=== PATIENT | male | born 1965 | race Caucasian/White ===

== ENCOUNTER 2016-05-30 00:59 | Inpatient (IN) | payer OTHER ==
[~2016-05-30] VITALS: Ht 177.8 cm; Wt 168.0 kg
[~2016-05-30 00:59] MED LIST: ACET-2247 PO; ASPI-1093 PO; AUD NEB; BISA10S PR; FOLI1 PO; HEPA500017 SQ; IPRNEB IH; METO-323 PO; MOM30 PO; NTP TD; OMEP20 PO; PERCT PO; ZOLP5 PO
[2016-05-30] MEDS ORDERED: GABA-529 PO (01:09)
[2016-05-30 02:04] LABS: EOSINOPHILS % (AUTO) 3.7 % (1.0-6.0); HEMATOCRIT 36.9 % (41-53); HEMOGLOBIN 11.9 g/dL (13.5-17.5); LYMPHOCYTES # (AUTO) 1.7 K/uL (1.0-4.8); LYMPHOCYTES % (AUTO) 13.4 % (22.0-44.0); MEAN CORPUSCULAR HEMOGLOBIN 35.5 pg (26.0-34.0); MEAN CORPUSCULAR HGB CONC 32.2 G/dL (31.0-37.0); MEAN CORPUSCULAR VOLUME 110 fL (80-100); MONOCYTES # (AUTO) 0.7 K/uL (0.1-1.0); MONOCYTES % (AUTO) 5.6 % (2.0-9.0); NEUTROPHILS # (AUTO) 9.8 K/uL (1.8-7.7); NEUTROPHILS % (AUTO) 77.3 % (40.0-70.0); PLATELET COUNT (AUTO) 273 K/uL (150-450); RED BLOOD CELL COUNT(AUTO) 3.35 MIL/uL (4.50-5.90); WHITE BLOOD COUNT (AUTO) 12.7 K/uL (4.5-11.0)
[2016-05-30 02:13] LABS: PROTHROMBIN TIME 10.3 SEC (9.4-11.6)
[2016-05-30 02:14] LABS: ANION GAP 8 mmol/L (8-16); CALCIUM, TOTAL 8.9 mg/dL (8.8-10.5); CARBON DIOXIDE 32 mmol/L (22-29); CHLORIDE 101 mmol/L (98-107); CREATININE 0.91 mg/dL (0.60-1.30); GLOMERULAR FILTR. RATE CALC > 60 mL/min (>60); POTASSIUM 3.3 mmol/L (3.5-5.1); SODIUM SERUM 141 mmol/L (136-145); UREA NITROGEN, BLOOD 7 mg/dL (7-18)
[2016-05-30 02:20] LABS: ALANINE AMINOTRANSFERASE 30 U/L (12-78); ASPARTATE AMINOTRANSFERASE 39 U/L (15-37); BILIRUBIN,TOTAL 0.4 mg/dL (0.1-1.0); CREATINE KINASE, TOTAL 53 U/L (39-308); TOTAL PROTEIN, SERUM 7.1 g/dL (6.4-8.2)
[2016-05-30 02:28] LABS: RBC MORPHOLOGY COMMENT ABNORMAL RBC MORPH
[2016-05-30 02:30] LABS: B-TYPE NATRIURETIC PEPTIDE 123 pg/mL (0-100)
[2016-05-30 03:29] LABS: APPEARANCE,URINE CLEAR (CLEAR); GLUCOSE, URINE (UA) NEGATIVE (NEGATIVE); KETONES,URINE NEGATIVE (NEGATIVE); LEUKOCYTE ESTERASE ,URINE NEGATIVE (NEGATIVE); OCCULT BLOOD,URINE NEGATIVE (NEGATIVE); PROTEIN,URINE SEE CONFIRM (NEGATIVE)
[2016-05-30] MEDS ORDERED: IPRATROPIUM BROMIDE 0.5 MG/2.5 ML NEB SOLUTION NEB ONE (03:30)
[2016-05-30] MEDS ORDERED: ALBUTEROL SULFATE 5 MG/ML 20 ML NEB SOLN [BULK] NEB ONE (03:30)
[2016-05-30] MEDS ORDERED: 0.9% SODIUM CHLORIDE 5 ML NEB SOLUTION NEB ONE (03:31)
[2016-05-30 03:56] LABS: ADD UA MICROSCOPIC YES; SULFOSALICYLIC ACID,URINE 1+ (Negative)
[2016-05-30 03:57] LABS: RBC,URINE 0-2 /HPF (0-2); SQUAMOUS EPITHELIAL CELL,UR Rare /LPF (None Seen)
[2016-05-30] MEDS ORDERED: ACETAMINOPHEN 325 MG TABLET PO PRN (04:30)
[2016-05-30] MEDS ORDERED: MAGNESIUM HYDROXIDE SUSPENSION 30 ML UDCUP PO PRN (04:30)
[2016-05-30] MEDS ORDERED: ONDANSETRON HCL 4 MG/2 ML VIAL IVP PRN (04:30)
[2016-05-30] MEDS ORDERED: MethylPREDNISolone SOD SUCC 125 MG/2 ML VIAL IVP ONE (04:30)
[2016-05-30] MEDS ORDERED: BISACODYL 10 MG RECTAL RECTAL SUPPOSITORY PR PRN (04:30)
[2016-05-30] MEDS ORDERED: ALBUTEROL SULFATE 2.5 MG/0.5 ML NEB SOLUTION NEB PRN (04:30)
[2016-05-30] MEDS: OxyCODONE HCL/ACETAMINOPHEN 5-325 MG TABLET PO PRN ×4 (05:07→20:28)
[2016-05-30 05:54] VITALS: BP 108/57
[2016-05-30] MEDS ORDERED: PNEUMOCOCCAL VACCINE POLYVALENT 0.5 ML VIAL [PPSV23] IM ONE (07:00)
[2016-05-30 07:35] VITALS: BP 113/56
[2016-05-30] MEDS: ALBUTEROL SULFATE 2.5 MG/0.5 ML NEB SOLUTION NEB SCH ×3 (08:23→20:44)
[2016-05-30] MEDS: IPRATROPIUM BROMIDE 0.5 MG/2.5 ML NEB SOLUTION NEB SCH ×3 (08:23→20:44)
[2016-05-30 09:56] LABS: GLUCOSE COMMENT 1 Received Meds; GLUCOSE,POINT OF CARE 155 MG/DL (70-110)
[2016-05-30] MEDS: FOLIC ACID 1 MG TABLET PO SCH ×2 (10:03→20:25)
[2016-05-30] MEDS: ASPIRIN 81 MG EC TABLET PO SCH (10:03)
[2016-05-30] MEDS: GABAPENTIN 100 MG CAPSULE PO SCH ×2 (10:03→20:26)
[2016-05-30] MEDS: PANTOPRAZOLE SODIUM 40 MG DR TABLET PO SCH (10:03)
[2016-05-30] MEDS: HEPARIN SODIUM,PORCINE 5,000 UNITS/ML VIAL SQ SCH ×3 (10:03→23:49)
[2016-05-30 10:38] VITALS: BP 110/57
[2016-05-30] MEDS: MethylPREDNISolone SOD SUCC 125 MG/2 ML VIAL IVP SCH ×3 (12:49→23:49)
[2016-05-30 15:25] VITALS: BP 122/61
[2016-05-30] MEDS ORDERED: POTASSIUM CHLORIDE 20 MEQ ER TABLET PO PRN (15:30)
[2016-05-30 15:40] LABS: ABG A-A DIFF O2 140.4 mmHg (10-20.0); ABG BASE EXCESS 5.2 mmol/L (-2.0-3.0); ABG HCO3 28.3 mmol/L (22.0-26.0); ABG OXYHEMOGLOBIN 88.5 % (94.0-100.0); ABG PCO2 47 mmHg (35-45); ABG PH 7.419 (7.35-7.450); ALLEN TEST, BLOOD GAS Positive; TEMPERATURE, FAHRENHEIT, BG 98.5 FAHREN (96.0-98.6)
[2016-05-30 20:25] VITALS: BP 127/64
[2016-05-30] MEDS: METOPROLOL SUCCINATE 25 MG ER TABLET PO SCH (20:26)
[2016-05-30] MEDS: ZOLPIDEM TARTRATE 10 MG TABLET PO PRN (21:56)
[2016-05-31 00:18] VITALS: BP 128/74
[2016-05-31] MEDS: ALBUTEROL SULFATE 2.5 MG/0.5 ML NEB SOLUTION NEB SCH ×4 (02:00→20:00)
[2016-05-31] MEDS: IPRATROPIUM BROMIDE 0.5 MG/2.5 ML NEB SOLUTION NEB SCH ×4 (02:00→20:00)
[2016-05-31] MEDS: OxyCODONE HCL/ACETAMINOPHEN 5-325 MG TABLET PO PRN ×4 (02:18→20:05)
[2016-05-31 04:59] VITALS: BP 114/51
[2016-05-31] MEDS: MethylPREDNISolone SOD SUCC 125 MG/2 ML VIAL IVP SCH ×4 (05:54→23:45)
[2016-05-31 06:49] LABS: EOSINOPHILS % (AUTO) 0.03 % (1.0-6.0); HEMOGLOBIN 11.7 g/dL (13.5-17.5); LYMPHOCYTES # (AUTO) 1.1 K/uL (1.0-4.8); LYMPHOCYTES % (AUTO) 6.8 % (22.0-44.0); MEAN CORPUSCULAR HEMOGLOBIN 35.8 pg (26.0-34.0); MEAN CORPUSCULAR HGB CONC 32.5 G/dL (31.0-37.0); MEAN CORPUSCULAR VOLUME 110 fL (80-100); MONOCYTES # (AUTO) 0.4 K/uL (0.1-1.0); MONOCYTES % (AUTO) 2.2 % (2.0-9.0); NEUTROPHILS # (AUTO) 14.5 K/uL (1.8-7.7); PLATELET COUNT (AUTO) 249 K/uL (150-450); RED BLOOD CELL COUNT(AUTO) 3.27 MIL/uL (4.50-5.90); RED CELL DISTRIBUTION WIDTH 22.7 % (11.5-14.5)
[2016-05-31 06:53] LABS: NEUTROPHILS % (AUTO) 90.9 % (40.0-70.0)
[2016-05-31 06:55] LABS: ANION GAP 7 mmol/L (8-16); CARBON DIOXIDE 31 mmol/L (22-29); CHLORIDE 99 mmol/L (98-107); CREATININE 0.73 mg/dL (0.60-1.30); GLOMERULAR FILTR. RATE CALC > 60 mL/min (>60); POTASSIUM 4.3 mmol/L (3.5-5.1); SODIUM SERUM 137 mmol/L (136-145); UREA NITROGEN, BLOOD 14 mg/dL (7-18)
[2016-05-31 07:31] VITALS: BP 112/66
[2016-05-31] MEDS: PANTOPRAZOLE SODIUM 40 MG DR TABLET PO SCH (07:47)
[2016-05-31] MEDS: GABAPENTIN 100 MG CAPSULE PO SCH ×2 (07:47→20:05)
[2016-05-31] MEDS: FOLIC ACID 1 MG TABLET PO SCH ×2 (07:47→20:05)
[2016-05-31] MEDS: ASPIRIN 81 MG EC TABLET PO SCH (07:47)
[2016-05-31] MEDS: HEPARIN SODIUM,PORCINE 5,000 UNITS/ML VIAL SQ SCH ×3 (09:03→23:45)
[2016-05-31 09:50] LABS: RBC MORPHOLOGY COMMENT ABNORMAL RBC MORPH
[2016-05-31 11:33] VITALS: BP 135/103
[2016-05-31 14:47] VITALS: BP 126/60
[2016-05-31 19:28] VITALS: BP 142/69
[2016-05-31] MEDS: METOPROLOL SUCCINATE 25 MG ER TABLET PO SCH (20:05)
[2016-05-31] MEDS ORDERED: 0.9% SODIUM CHLORIDE 10 ML SYRINGE IVP PRN (22:00)
[2016-05-31] MEDS: ZOLPIDEM TARTRATE 10 MG TABLET PO PRN (23:45)
[2016-06-01 00:07] VITALS: BP 132/68
[2016-06-01] MEDS: ALBUTEROL SULFATE 2.5 MG/0.5 ML NEB SOLUTION NEB SCH ×4 (02:08→19:50)
[2016-06-01] MEDS: IPRATROPIUM BROMIDE 0.5 MG/2.5 ML NEB SOLUTION NEB SCH ×4 (02:08→19:51)
[2016-06-01 03:09] VITALS: BP 146/83
[2016-06-01] MEDS: OxyCODONE HCL/ACETAMINOPHEN 5-325 MG TABLET PO PRN ×4 (04:05→20:48)
[2016-06-01] MEDS: MethylPREDNISolone SOD SUCC 125 MG/2 ML VIAL IVP SCH ×4 (05:31→22:54)
[2016-06-01 06:23] LABS: EOSINOPHILS % (AUTO) 0 % (1.0-6.0); HEMATOCRIT 36.2 % (41-53); HEMOGLOBIN 11.6 g/dL (13.5-17.5); LYMPHOCYTES % (AUTO) 5.8 % (22.0-44.0); MEAN CORPUSCULAR HEMOGLOBIN 35.2 pg (26.0-34.0); MEAN CORPUSCULAR VOLUME 110 fL (80-100); MONOCYTES # (AUTO) 0.7 K/uL (0.1-1.0); MONOCYTES % (AUTO) 3.9 % (2.0-9.0); NEUTROPHILS # (AUTO) 15.9 K/uL (1.8-7.7); PLATELET COUNT (AUTO) 250 K/uL (150-450); RED BLOOD CELL COUNT(AUTO) 3.29 MIL/uL (4.50-5.90); RED CELL DISTRIBUTION WIDTH 22.5 % (11.5-14.5); WHITE BLOOD COUNT (AUTO) 17.6 K/uL (4.5-11.0)
[2016-06-01 07:09] LABS: ANION GAP 12 mmol/L (8-16); CALCIUM, TOTAL 9.3 mg/dL (8.8-10.5); CARBON DIOXIDE 28 mmol/L (22-29); CHLORIDE 97 mmol/L (98-107); CREATININE 0.82 mg/dL (0.60-1.30); GLOMERULAR FILTR. RATE CALC > 60 mL/min (>60); POTASSIUM 3.9 mmol/L (3.5-5.1); SODIUM SERUM 137 mmol/L (136-145); UREA NITROGEN, BLOOD 21 mg/dL (7-18)
[2016-06-01 07:11] LABS: NEUTROPHILS % (AUTO) 90.3 % (40.0-70.0)
[2016-06-01 08:04] LABS: RBC MORPHOLOGY COMMENT ABNORMAL RBC MORPH
[2016-06-01 08:14] VITALS: BP 133/82
[2016-06-01] MEDS: FOLIC ACID 1 MG TABLET PO SCH ×2 (08:17→20:48)
[2016-06-01] MEDS: PANTOPRAZOLE SODIUM 40 MG DR TABLET PO SCH (08:17)
[2016-06-01] MEDS: GABAPENTIN 100 MG CAPSULE PO SCH ×2 (08:17→20:48)
[2016-06-01] MEDS: ASPIRIN 81 MG EC TABLET PO SCH (08:18)
[2016-06-01] MEDS: HEPARIN SODIUM,PORCINE 5,000 UNITS/ML VIAL SQ SCH ×3 (08:18→22:54)
[2016-06-01 11:17] VITALS: BP 147/85
[2016-06-01 15:48] VITALS: BP 141/78
[2016-06-01 19:35] VITALS: BP 149/76
[2016-06-01] MEDS: OXYGEN THERAPY IH SCH (19:51)
[2016-06-01] MEDS: METOPROLOL SUCCINATE 25 MG ER TABLET PO SCH (22:03)
[2016-06-01] MEDS: ZOLPIDEM TARTRATE 10 MG TABLET PO PRN (22:55)
[2016-06-02 00:05] VITALS: BP 127/70
[2016-06-02] MEDS: IPRATROPIUM BROMIDE 0.5 MG/2.5 ML NEB SOLUTION NEB SCH ×4 (02:29→19:44)
[2016-06-02] MEDS: ALBUTEROL SULFATE 2.5 MG/0.5 ML NEB SOLUTION NEB SCH ×4 (02:29→19:44)
[2016-06-02 05:17] VITALS: BP 146/84
[2016-06-02] MEDS: MethylPREDNISolone SOD SUCC 125 MG/2 ML VIAL IVP SCH ×4 (05:18→22:54)
[2016-06-02] MEDS: OxyCODONE HCL/ACETAMINOPHEN 5-325 MG TABLET PO PRN ×3 (05:18→20:09)
[2016-06-02 06:08] LABS: EOSINOPHILS % (AUTO) 0 % (1.0-6.0); HEMATOCRIT 35.5 % (41-53); HEMOGLOBIN 11.7 g/dL (13.5-17.5); LYMPHOCYTES # (AUTO) 0.8 K/uL (1.0-4.8); LYMPHOCYTES % (AUTO) 5.9 % (22.0-44.0); MEAN CORPUSCULAR HEMOGLOBIN 35.8 pg (26.0-34.0); MEAN CORPUSCULAR HGB CONC 32.8 G/dL (31.0-37.0); MEAN CORPUSCULAR VOLUME 109 fL (80-100); MONOCYTES # (AUTO) 0.5 K/uL (0.1-1.0); MONOCYTES % (AUTO) 3.2 % (2.0-9.0); NEUTROPHILS # (AUTO) 12.7 K/uL (1.8-7.7); PLATELET COUNT (AUTO) 227 K/uL (150-450); RED BLOOD CELL COUNT(AUTO) 3.26 MIL/uL (4.50-5.90); RED CELL DISTRIBUTION WIDTH 22.5 % (11.5-14.5)
[2016-06-02 06:19] LABS: ANION GAP 9 mmol/L (8-16); CALCIUM, TOTAL 9.3 mg/dL (8.8-10.5); CARBON DIOXIDE 28 mmol/L (22-29); CHLORIDE 99 mmol/L (98-107); CREATININE 0.88 mg/dL (0.60-1.30); GLOMERULAR FILTR. RATE CALC > 60 mL/min (>60); SODIUM SERUM 136 mmol/L (136-145); UREA NITROGEN, BLOOD 23 mg/dL (7-18)
[2016-06-02 07:00] LABS: NEUTROPHILS % (AUTO) 90.9 % (40.0-70.0)
[2016-06-02 07:17] VITALS: BP 132/76
[2016-06-02 07:59] LABS: RBC MORPHOLOGY COMMENT ABNORMAL RBC MORPH
[2016-06-02] MEDS: ASPIRIN 81 MG EC TABLET PO SCH (08:47)
[2016-06-02] MEDS: PANTOPRAZOLE SODIUM 40 MG DR TABLET PO SCH (08:47)
[2016-06-02] MEDS: FOLIC ACID 1 MG TABLET PO SCH ×2 (08:47→20:09)
[2016-06-02] MEDS: GABAPENTIN 100 MG CAPSULE PO SCH ×2 (08:47→20:09)
[2016-06-02] MEDS: OXYGEN THERAPY IH SCH ×2 (08:48→20:14)
[2016-06-02] MEDS: HEPARIN SODIUM,PORCINE 5,000 UNITS/ML VIAL SQ SCH ×3 (08:48→22:54)
[2016-06-02 11:36] VITALS: BP 131/75
[2016-06-02 15:22] VITALS: BP 135/77
[2016-06-02] MEDS ORDERED: BENZOCAINE 10% 7 GM GEL TP PRN (16:00)
[2016-06-02] MEDS: NICOTINE 7 MG/24 HOUR PATCH TD SCH (18:20)
[2016-06-02 19:54] VITALS: BP 139/87
[2016-06-02] MEDS: METOPROLOL SUCCINATE 25 MG ER TABLET PO SCH (20:09)
[2016-06-02] MEDS: ZOLPIDEM TARTRATE 10 MG TABLET PO PRN (22:56)
[2016-06-03 00:11] VITALS: BP 149/80
[2016-06-03] MEDS: OxyCODONE HCL/ACETAMINOPHEN 5-325 MG TABLET PO PRN ×3 (00:26→11:59)
[2016-06-03] MEDS: ALBUTEROL SULFATE 2.5 MG/0.5 ML NEB SOLUTION NEB SCH ×3 (01:43→15:37)
[2016-06-03] MEDS: IPRATROPIUM BROMIDE 0.5 MG/2.5 ML NEB SOLUTION NEB SCH ×3 (01:43→15:37)
[2016-06-03 02:11] LABS: GLUCOSE COMMENT 1 Received Meds; GLUCOSE,POINT OF CARE 243 MG/DL (70-110)
[2016-06-03 04:45] VITALS: BP 151/82
[2016-06-03] MEDS: MethylPREDNISolone SOD SUCC 125 MG/2 ML VIAL IVP SCH (06:00)
[2016-06-03 08:39] VITALS: BP 145/85
[2016-06-03] MEDS: PANTOPRAZOLE SODIUM 40 MG DR TABLET PO SCH (08:54)
[2016-06-03] MEDS: ASPIRIN 81 MG EC TABLET PO SCH (08:54)
[2016-06-03] MEDS: GABAPENTIN 100 MG CAPSULE PO SCH (08:54)
[2016-06-03] MEDS: HEPARIN SODIUM,PORCINE 5,000 UNITS/ML VIAL SQ SCH ×2 (08:54→17:12)
[2016-06-03] MEDS: NICOTINE 7 MG/24 HOUR PATCH TD SCH (08:54)
[2016-06-03] MEDS: METOPROLOL SUCCINATE 25 MG ER TABLET PO SCH (08:54)
[2016-06-03] MEDS: FOLIC ACID 1 MG TABLET PO SCH (08:55)
[2016-06-03] MEDS ORDERED: MethylPREDNISolone SOD SUCC 40 MG/ML VIAL IVP SCH (12:00)
[2016-06-03 12:16] VITALS: BP 140/100
[2016-06-03] MEDS ORDERED: PRED10 PO (15:18)
[2016-06-03] MEDS ORDERED: PRED5 PO (15:18)
[2016-06-03] MEDS ORDERED: PRED20 PO (15:18)
[2016-06-03] MEDS ORDERED: PREDNISONE PO (15:18)
[2016-06-03] MEDS: OXYGEN THERAPY IH SCH (15:37)
[2016-06-03 16:17] VITALS: BP 149/70
[2016-06-04] MEDS ORDERED: PredniSONE 20 MG TABLET PO SCH (09:00)
== END 2016-06-03 17:45 | disposition home or self-care (01) | DRG 720 ==
LOC: EMS 01:00 → 5S 05:12 → 6N 06-01 02:45
PROVIDERS: ADMIT Hospitalist; ATTEND Hospitalist
PROC: 3E0234Z Introduction of Serum, Toxoid and Vaccine into Muscle, Percutaneous Approach (ICD-10-PCS; principal; 2016-05-31)
PROC: 5A09357 Assistance with Respiratory Ventilation, Less than 24 Consecutive Hours, Continuous Positive Airway Pressure (ICD-10-PCS; 2016-06-01)
DX: A41.9 Sepsis, unspecified organism (principal); J96.21 Acute and chronic respiratory failure with hypoxia; G93.41 Metabolic encephalopathy; I50.9 Heart failure, unspecified; J44.1 Chronic obstructive pulmonary disease with (acute) exacerbation; J20.9 Acute bronchitis, unspecified; G47.33 Obstructive sleep apnea (adult) (pediatric); J44.0 Chronic obstructive pulmonary disease with (acute) lower respiratory infection; F41.9 Anxiety disorder, unspecified; F32.9 Major depressive disorder, single episode, unspecified; F17.210 Nicotine dependence, cigarettes, uncomplicated; F10.10 Alcohol abuse, uncomplicated; E11.42 Type 2 diabetes mellitus with diabetic polyneuropathy; E78.5 Hyperlipidemia, unspecified; E87.6 Hypokalemia; K74.60 Unspecified cirrhosis of liver; E53.8 Deficiency of other specified B group vitamins; I11.0 Hypertensive heart disease with heart failure; D64.9 Anemia, unspecified; E66.01 Morbid (severe) obesity due to excess calories; Z68.43 Body mass index [BMI] 50.0-59.9, adult; Z79.899 Other long term (current) drug therapy; Z79.82 Long term (current) use of aspirin; Z23 Encounter for immunization
CPT/HCPCS: 70450; 82805; 82962; 84132; 87081; 90471; 93005; 94640; 94644; 94660; 96374; 99291; G0480; J1644; J2920; J2930

== ENCOUNTER 2016-06-10 16:19 | Inpatient (IN) | payer OTHER ==
[~2016-06-10] VITALS: Ht 177.8 cm; Wt 157.9 kg
[~2016-06-10 16:19] MED LIST changes: -AUD NEB; -BISA10S PR; +GABA-529 PO; -HEPA500017 SQ; -IPRNEB IH; -MOM30 PO; -NTP TD; +PRED10 PO; +PRED20 PO; +PRED5 PO; +PREDNISONE PO
[2016-06-10 17:36] LABS: BASOPHILS # (AUTO) 0.25 K/uL (0.00-0.20); BASOPHILS % (AUTO) 1.6 % (0.0-2.0); EOSINOPHILS # (AUTO) 0.37 K/uL (0.00-0.70); EOSINOPHILS % (AUTO) 2.27 % (1.0-6.0); HEMATOCRIT 44.6 % (41-53); HEMOGLOBIN 14.9 g/dL (13.5-17.5); LYMPHOCYTES # (AUTO) 3.4 K/uL (1.0-4.8); LYMPHOCYTES % (AUTO) 20.7 % (22.0-44.0); MEAN CORPUSCULAR HEMOGLOBIN 35.2 pg (26.0-34.0); MEAN CORPUSCULAR HGB CONC 33.5 G/dL (31.0-37.0); MEAN CORPUSCULAR VOLUME 105 fL (80-100); MONOCYTES # (AUTO) 1.3 K/uL (0.1-1.0); MONOCYTES % (AUTO) 8.2 % (2.0-9.0); NEUTROPHILS % (AUTO) 67.3 % (40.0-70.0); PLATELET COUNT (AUTO) 319 K/uL (150-450); RED BLOOD CELL COUNT(AUTO) 4.25 MIL/uL (4.50-5.90); RED CELL DISTRIBUTION WIDTH 23.5 % (11.5-14.5); WHITE BLOOD COUNT (AUTO) 16.3 K/uL (4.5-11.0)
[2016-06-10 17:44] LABS: PROTHROMBIN TIME 10.1 SEC (9.4-11.6)
[2016-06-10 17:52] LABS: ANION GAP 16 mmol/L (8-16); CALCIUM, TOTAL 9.1 mg/dL (8.8-10.5); CARBON DIOXIDE 24 mmol/L (22-29); CHLORIDE 97 mmol/L (98-107); CREATININE 0.93 mg/dL (0.60-1.30); GLOMERULAR FILTR. RATE CALC > 60 mL/min (>60); POTASSIUM 3.6 mmol/L (3.5-5.1); SODIUM SERUM 137 mmol/L (136-145); UREA NITROGEN, BLOOD 7 mg/dL (7-18)
[2016-06-10 17:55] LABS: RBC MORPHOLOGY COMMENT ABNORMAL RBC MORPH
[2016-06-10 17:56] LABS: ALANINE AMINOTRANSFERASE 44 U/L (12-78); ALBUMIN 3.5 g/dL (3.4-5.0); ASPARTATE AMINOTRANSFERASE 24 U/L (15-37); BILIRUBIN,TOTAL 0.7 mg/dL (0.1-1.0); CREATINE KINASE, TOTAL 20 U/L (39-308); TOTAL PROTEIN, SERUM 7.9 g/dL (6.4-8.2)
[2016-06-10 18:13] LABS: B-TYPE NATRIURETIC PEPTIDE 42 pg/mL (0-100)
[2016-06-10] MEDS ORDERED: SODIUM CHLORIDE 0.9% 1,000 ML IV ONE (19:45)
[2016-06-10] MEDS ORDERED: PANTOPRAZOLE SODIUM 80 MG in SODIUM CHLORIDE 0.9% 500 ML IV SCH (19:45)
[2016-06-10] MEDS ORDERED: PANTOPRAZOLE SODIUM 80 MG in SODIUM CHLORIDE 0.9% 50 ML IV ONE (19:45)
[2016-06-10] MEDS ORDERED: HYDROmorphone 2 MG/ML SYRINGE IVP ONE (19:45)
[2016-06-10] MEDS ORDERED: ONDANSETRON HCL 4 MG/2 ML VIAL IVP ONE (19:45)
[2016-06-10] MEDS ORDERED: ONDANSETRON HCL 4 MG/2 ML VIAL IVP PRN (21:00)
[2016-06-10] MEDS ORDERED: 0.9% SODIUM CHLORIDE 10 ML SYRINGE IVP PRN (21:00)
[2016-06-10] MEDS ORDERED: MAGNESIUM SULFATE 2 GM, MVI, ADULT NO.1 WITH VIT K 10 ML, THIAMINE HCL 100 MG, FOLIC AC... IV ONE ×5 (21:00)
[2016-06-10] MEDS ORDERED: ACETAMINOPHEN 325 MG TABLET PO PRN (21:00)
[2016-06-10 22:46] VITALS: BP 108/47
[2016-06-10] MEDS ORDERED: HYDROCODONE/ACETAMINOPHEN 5-325 MG TABLET PO PRN (23:30)
[2016-06-10] MEDS: HYDROCODONE/ACETAMINOPHEN 5-325 MG TABLET PO PRN (23:33)
[2016-06-11] MEDS ORDERED: IPRATROPIUM BROMIDE 0.5 MG/2.5 ML NEB SOLUTION NEB PRN ×2 (02:15)
[2016-06-11] MEDS ORDERED: ALBUTEROL SULFATE 2.5 MG/0.5 ML NEB SOLUTION NEB PRN ×2 (02:15)
[2016-06-11] MEDS ORDERED: ACETAMINOPHEN 325 MG TABLET PO PRN (03:00)
[2016-06-11] MEDS ORDERED: ChlordiazePOXIDE HCL 25 MG CAPSULE PO PRN (03:00)
[2016-06-11] MEDS ORDERED: ZOLPIDEM TARTRATE 5 MG TABLET PO PRN (03:00)
[2016-06-11] MEDS ORDERED: 0.9% SODIUM CHLORIDE 10 ML SYRINGE IVP PRN (03:15)
[2016-06-11] MEDS ORDERED: ONDANSETRON HCL 4 MG/2 ML VIAL IVP PRN (03:15)
[2016-06-11] MEDS: OxyCODONE HCL/ACETAMINOPHEN 5-325 MG TABLET PO PRN ×4 (03:42→20:15)
[2016-06-11] MEDS: FOLIC ACID 1 MG TABLET PO SCH ×3 (03:42→20:15)
[2016-06-11] MEDS ORDERED: -PHARMACY VACCINE NOTE- MISC ONE ×2 (03:45)
[2016-06-11] MEDS: GABAPENTIN 100 MG CAPSULE PO SCH ×2 (04:14→08:44)
[2016-06-11 04:45] VITALS: BP 113/64
[2016-06-11] MEDS ORDERED: PANTOPRAZOLE SODIUM 80 MG in SODIUM CHLORIDE 0.9% 500 ML IV SCH (06:00)
[2016-06-11 08:02] VITALS: BP 118/47
[2016-06-11] MEDS: PredniSONE 5 MG TABLET PO SCH (08:44)
[2016-06-11] MEDS: ASPIRIN 81 MG EC TABLET PO SCH (08:44)
[2016-06-11] MEDS: HYDROCODONE/ACETAMINOPHEN 5-325 MG TABLET PO PRN (08:45)
[2016-06-11] MEDS ORDERED: DOCUSATE SODIUM 100 MG CAPSULE PO SCH (09:00)
[2016-06-11] MEDS ORDERED: PEG 3350/NA SULF,BICARB,CL/KCL 4000 ML SOLUTION PO ONE (09:00)
[2016-06-11] MEDS ORDERED: PANTOPRAZOLE SODIUM 40 MG/VIAL IVP SCH ×2 (09:00)
[2016-06-11 12:32] VITALS: BP 139/81
[2016-06-11 19:51] VITALS: BP 149/83
[2016-06-11] MEDS: METOPROLOL SUCCINATE 25 MG ER TABLET PO SCH (20:15)
[2016-06-11] MEDS: PANTOPRAZOLE SODIUM 40 MG/VIAL IVP SCH (20:16)
[2016-06-11 23:25] VITALS: BP 128/70
[2016-06-11] MEDS ORDERED: OxyCODONE HCL/ACETAMINOPHEN 10-325 MG TABLET PO ONE (23:30)
[2016-06-12 04:56] VITALS: BP 132/58
[2016-06-12] MEDS: OxyCODONE HCL/ACETAMINOPHEN 5-325 MG TABLET PO PRN ×4 (05:36→20:04)
[2016-06-12] MEDS ORDERED: SODIUM CHLORIDE 0.9% 1,000 ML IV ONE ×2 (07:00→08:03)
[2016-06-12] MEDS ORDERED: ChlordiazePOXIDE HCL 25 MG CAPSULE PO PRN (07:00)
[2016-06-12 07:14] LABS: BASOPHILS % (AUTO) 0.8 % (0.0-2.0); EOSINOPHILS % (AUTO) 5.6 % (1.0-6.0); HEMATOCRIT 36.9 % (41-53); HEMOGLOBIN 12.1 g/dL (13.5-17.5); LYMPHOCYTES # (AUTO) 2.1 K/uL (1.0-4.8); LYMPHOCYTES % (AUTO) 20.4 % (22.0-44.0); MEAN CORPUSCULAR HEMOGLOBIN 34.7 pg (26.0-34.0); MEAN CORPUSCULAR HGB CONC 32.7 G/dL (31.0-37.0); MEAN CORPUSCULAR VOLUME 106 fL (80-100); MONOCYTES # (AUTO) 0.9 K/uL (0.1-1.0); MONOCYTES % (AUTO) 8.9 % (2.0-9.0); NEUTROPHILS # (AUTO) 6.7 K/uL (1.8-7.7); NEUTROPHILS % (AUTO) 64.3 % (40.0-70.0); PLATELET COUNT (AUTO) 218 K/uL (150-450); RED BLOOD CELL COUNT(AUTO) 3.47 MIL/uL (4.50-5.90); RED CELL DISTRIBUTION WIDTH 21.9 % (11.5-14.5); WHITE BLOOD COUNT (AUTO) 10.4 K/uL (4.5-11.0)
[2016-06-12 07:32] LABS: ANION GAP 6 mmol/L (8-16); CALCIUM, TOTAL 8.6 mg/dL (8.8-10.5); CARBON DIOXIDE 31 mmol/L (22-29); CHLORIDE 98 mmol/L (98-107); CREATININE 0.77 mg/dL (0.60-1.30); GLOMERULAR FILTR. RATE CALC > 60 mL/min (>60); POTASSIUM 4.1 mmol/L (3.5-5.1); SODIUM SERUM 135 mmol/L (136-145); UREA NITROGEN, BLOOD 5 mg/dL (7-18)
[2016-06-12 07:48] VITALS: BP 138/80
[2016-06-12] MEDS ORDERED: ChlordiazePOXIDE HCL 25 MG CAPSULE PO SCH (09:00)
[2016-06-12] MEDS: HYDROCORTISONE 2.5% 30 GM CREAM TP SCH ×4 (09:15→20:04)
[2016-06-12] MEDS ORDERED: ZOLPIDEM TARTRATE 5 MG TABLET PO PRN (10:30)
[2016-06-12] MEDS: THIAMINE HCL 100 MG/ML 2ML VIAL IM SCH (10:43)
[2016-06-12] MEDS: PredniSONE 5 MG TABLET PO SCH (10:43)
[2016-06-12] MEDS: PANTOPRAZOLE SODIUM 40 MG/VIAL IVP SCH ×2 (10:43→20:03)
[2016-06-12] MEDS: FOLIC ACID 1 MG TABLET PO SCH ×2 (10:44→20:03)
[2016-06-12] MEDS: ASPIRIN 81 MG EC TABLET PO SCH (10:44)
[2016-06-12] MEDS ORDERED: PROPOFOL 1% 20 ML VIAL IVP ONE (12:00)
[2016-06-12] MEDS: GABAPENTIN 100 MG CAPSULE PO SCH ×2 (12:12→20:04)
[2016-06-12 12:29] VITALS: BP 134/83
[2016-06-12 15:47] VITALS: BP 141/73
[2016-06-12 19:41] VITALS: BP 125/68
[2016-06-12] MEDS: METOPROLOL SUCCINATE 25 MG ER TABLET PO SCH (20:03)
[2016-06-13] VITALS: BP 124/60
[2016-06-13] MEDS: OxyCODONE HCL/ACETAMINOPHEN 5-325 MG TABLET PO PRN ×2 (00:22→08:55)
[2016-06-13 04:20] VITALS: BP 130/77
[2016-06-13 06:40] LABS: BASOPHILS # (AUTO) 0.04 K/uL (0.00-0.20); BASOPHILS % (AUTO) 0.4 % (0.0-2.0); EOSINOPHILS # (AUTO) 0.48 K/uL (0.00-0.70); HEMATOCRIT 35.8 % (41-53); LYMPHOCYTES % (AUTO) 20.7 % (22.0-44.0); MEAN CORPUSCULAR HGB CONC 33.5 G/dL (31.0-37.0); MEAN CORPUSCULAR VOLUME 104 fL (80-100); MONOCYTES # (AUTO) 0.9 K/uL (0.1-1.0); MONOCYTES % (AUTO) 8.9 % (2.0-9.0); NEUTROPHILS # (AUTO) 6.2 K/uL (1.8-7.7); PLATELET COUNT (AUTO) 204 K/uL (150-450); RED BLOOD CELL COUNT(AUTO) 3.44 MIL/uL (4.50-5.90); RED CELL DISTRIBUTION WIDTH 22.5 % (11.5-14.5); WHITE BLOOD COUNT (AUTO) 9.5 K/uL (4.5-11.0)
[2016-06-13 07:37] VITALS: BP 115/65
[2016-06-13] MEDS: FOLIC ACID 1 MG TABLET PO SCH (08:41)
[2016-06-13] MEDS: PANTOPRAZOLE SODIUM 40 MG/VIAL IVP SCH (08:41)
[2016-06-13] MEDS: GABAPENTIN 100 MG CAPSULE PO SCH (08:42)
[2016-06-13] MEDS: HYDROCORTISONE 2.5% 30 GM CREAM TP SCH (08:42)
[2016-06-13] MEDS: PredniSONE 5 MG TABLET PO SCH (08:42)
[2016-06-13] MEDS: ASPIRIN 81 MG EC TABLET PO SCH (08:42)
[2016-06-13] MEDS: THIAMINE HCL 100 MG/ML 2ML VIAL IM SCH (08:43)
[2016-06-13 10:23] LABS: RBC MORPHOLOGY COMMENT ABNORMAL RBC MORPH
[2016-06-13] MEDS ORDERED: MINERAL OIL/PETROLATUM 120 GM CREAM TP SCH (10:45)
[2016-06-13] MEDS ORDERED: CHLORHEXIDINE GLUCONATE 4% 118 ML TOPICAL LIQUID TP ONE (10:45)
[2016-06-13] MEDS ORDERED: MUPIROCIN CALCIUM 2% 22 GM OINTMENT TP SCH (10:45)
[2016-06-13 11:50] VITALS: BP 151/76
[2016-06-14] MEDS ORDERED: ChlordiazePOXIDE HCL 10 MG CAPSULE PO PRN (07:00)
[2016-06-14] MEDS ORDERED: ChlordiazePOXIDE HCL 10 MG CAPSULE PO SCH (09:00)
[2016-06-15] MEDS ORDERED: ChlordiazePOXIDE HCL 10 MG CAPSULE PO PRN (07:00)
== END 2016-06-13 12:50 | disposition home or self-care (01) | DRG 253 ==
LOC: EMS 16:22 → 6N 21:30
PROVIDERS: ADMIT Family Medicine; ATTEND Internal Medicine
PROC: 0DJD8ZZ Inspection of Lower Intestinal Tract, Via Natural or Artificial Opening Endoscopic (ICD-10-PCS; principal; 2016-06-12 09:00)
DX: K92.2 Gastrointestinal hemorrhage, unspecified (principal); E11.40 Type 2 diabetes mellitus with diabetic neuropathy, unspecified; E44.0 Moderate protein-calorie malnutrition; I11.0 Hypertensive heart disease with heart failure; I50.9 Heart failure, unspecified; K70.30 Alcoholic cirrhosis of liver without ascites; Z68.42 Body mass index [BMI] 45.0-49.9, adult; D53.9 Nutritional anemia, unspecified; F32.9 Major depressive disorder, single episode, unspecified; E66.01 Morbid (severe) obesity due to excess calories; K64.1 Second degree hemorrhoids; J44.9 Chronic obstructive pulmonary disease, unspecified; F41.9 Anxiety disorder, unspecified; G47.33 Obstructive sleep apnea (adult) (pediatric); K21.9 Gastro-esophageal reflux disease without esophagitis; G89.29 Other chronic pain; K57.30 Diverticulosis of large intestine without perforation or abscess without bleeding; F10.229 Alcohol dependence with intoxication, unspecified; Y90.6 Blood alcohol level of 120-199 mg/100 ml; F17.210 Nicotine dependence, cigarettes, uncomplicated; Z79.899 Other long term (current) drug therapy; Z79.82 Long term (current) use of aspirin; Z98.890 Other specified postprocedural states; Z71.41 Alcohol abuse counseling and surveillance of alcoholic; K64.8 Other hemorrhoids
CPT/HCPCS: 82271; 93005; 94640; 96365; 96366; 96375; 99285; C9113; G0480; J1170; J2405; J2704; J3411; J3475; J3490; J7030; J7040; J7050

== ENCOUNTER 2016-12-23 14:06 | Emergency (ER) | payer OTHER ==
[~2016-12-23] VITALS: Ht 180.3 cm; Wt 163.6 kg
[~2016-12-23 14:06] MED LIST changes: -ACET-2247 PO; -PRED10 PO; -PRED20 PO; -PRED5 PO; -PREDNISONE PO; -ZOLP5 PO
[2016-12-23 14:52] LABS: GLUCOSE,POINT OF CARE 97 MG/DL (70-110)
[2016-12-23 15:17] LABS: BASOPHILS % (AUTO) 0.4 % (0.0-2.0); EOSINOPHILS % (AUTO) 1.6 % (1.0-6.0); HEMATOCRIT 41.6 % (41-53); HEMOGLOBIN 14.3 g/dL (13.5-17.5); LYMPHOCYTES # (AUTO) 3.1 K/uL (1.0-4.8); LYMPHOCYTES % (AUTO) 22.9 % (22.0-44.0); MEAN CORPUSCULAR HEMOGLOBIN 39.4 pg (26.0-34.0); MEAN CORPUSCULAR HGB CONC 34.3 G/dL (31.0-37.0); MEAN CORPUSCULAR VOLUME 115 fL (80-100); MONOCYTES # (AUTO) 0.6 K/uL (0.1-1.0); MONOCYTES % (AUTO) 4.8 % (2.0-9.0); NEUTROPHILS # (AUTO) 9.4 K/uL (1.8-7.7); NEUTROPHILS % (AUTO) 70.3 % (40.0-70.0); PLATELET COUNT (AUTO) 221 K/uL (150-450); RED BLOOD CELL COUNT(AUTO) 3.62 MIL/uL (4.50-5.90); RED CELL DISTRIBUTION WIDTH 18.1 % (11.5-14.5); WHITE BLOOD COUNT (AUTO) 13.4 K/uL (4.5-11.0)
[2016-12-23 15:45] LABS: ALANINE AMINOTRANSFERASE 28 U/L (12-78); ALBUMIN 2.6 g/dL (3.4-5.0); ANION GAP 18 mmol/L (8-16); ASPARTATE AMINOTRANSFERASE 53 U/L (15-37); BILIRUBIN,TOTAL 1.2 mg/dL (0.1-1.0); CALCIUM, TOTAL 7.3 mg/dL (8.8-10.5); CARBON DIOXIDE 25 mmol/L (22-29); CHLORIDE 98 mmol/L (98-107); CREATININE 1.01 mg/dL (0.60-1.30); GLOMERULAR FILTR. RATE CALC > 60 mL/min (>60); SODIUM SERUM 141 mmol/L (136-145); TOTAL PROTEIN, SERUM 6.4 g/dL (6.4-8.2); UREA NITROGEN, BLOOD 8 mg/dL (7-18)
[2016-12-23 15:53] LABS: POTASSIUM 2.8 mmol/L (3.5-5.1)
[2016-12-23 16:09] LABS: RBC MORPHOLOGY COMMENT ABNORMAL RBC MORPH
[2016-12-23] MEDS ORDERED: HYDROmorphone 2 MG/ML SYRINGE IVP ONE ×3 (16:15→21:00)
[2016-12-23] MEDS ORDERED: ONDANSETRON HCL 4 MG/2 ML VIAL IVP ONE (16:15)
[2016-12-23] MEDS ORDERED: SODIUM CHLORIDE 0.9% 1,000 ML IV ONE ×2 (16:15→21:00)
[2016-12-23] MEDS: POTASSIUM CHL 10 MEQ/WATER 50 ML IV SCH ×3 (16:32→20:23)
[2016-12-23] MEDS ORDERED: BARIUM SULFATE 0.1% SUSPENSION 450 ML BOTTLE PO ONE (18:15)
[2016-12-23 18:58] LABS: ADD UA MICROSCOPIC YES; APPEARANCE,URINE CLOUDY (CLEAR); GLUCOSE, URINE (UA) NEGATIVE (NEGATIVE); KETONES,URINE 15 mg/dL (NEGATIVE); LEUKOCYTE ESTERASE ,URINE MODERATE (NEGATIVE); OCCULT BLOOD,URINE NEGATIVE (NEGATIVE); PROTEIN,URINE POS 1+ (NEGATIVE)
[2016-12-23] MEDS ORDERED: IOVERSOL 350 MG/ML 100 ML VIAL ONE (18:59)
[2016-12-23] MEDS ORDERED: SODIUM CHLORIDE 0.9% 100 ML ONE (19:00)
[2016-12-23 19:06] LABS: RBC,URINE 0-2 /HPF (0-2); SQUAMOUS EPITHELIAL CELL,UR Few /LPF (None Seen); WBC,URINE 26-50 /HPF (0-5)
[2016-12-23] MEDS ORDERED: SODIUM CHLORIDE 0.9% 500 ML IV ONE (19:19)
[2016-12-23] MEDS ORDERED: CefTRIAXone 1 GM/DEXTROSE 50 ML IV ONE (21:00)
[2016-12-23] MEDS ORDERED: LEVOFLOXACIN 500 MG/D5% WATER 100 ML IV ONE (21:00)
[2016-12-23 23:00] VITALS: BP 105/69
== END 2016-12-24 00:13 | disposition home or self-care (01) ==
LOC: EMS 14:10
DX: N39.0 Urinary tract infection, site not specified (principal); I11.0 Hypertensive heart disease with heart failure; I50.9 Heart failure, unspecified; E11.9 Type 2 diabetes mellitus without complications; J44.9 Chronic obstructive pulmonary disease, unspecified; F17.210 Nicotine dependence, cigarettes, uncomplicated; E66.9 Obesity, unspecified; Z68.43 Body mass index [BMI] 50.0-59.9, adult; Z79.82 Long term (current) use of aspirin
CPT/HCPCS: 36415; 74177; 76700; 80053; 81001; 82962; 83690; 84484; 85025; 87077; 87086; 87186; 93005; 96361; 96374; 96375; 96376; 99285; J0696; J1170; J1956; J2405; J3480; J7030; J7040; J7050; Q9967; Z7610

== ENCOUNTER 2017-01-02 17:53 | Inpatient (IN) | payer OTHER ==
[~2017-01-02] VITALS: Ht 177.8 cm; Wt 160.0 kg
[2017-01-02 18:22] LABS: GLUCOSE,POINT OF CARE 104 MG/DL (70-110)
[2017-01-02] MEDS ORDERED: ONDANSETRON HCL 4 MG/2 ML VIAL IVP ONE (18:45)
[2017-01-02] MEDS ORDERED: SODIUM CHLORIDE 0.9% 1,000 ML IV ONE (18:45)
[2017-01-02] MEDS ORDERED: ASPIRIN 81 MG CHEWABLE TABLET PO ONE (18:45)
[2017-01-02] MEDS ORDERED: KETOROLAC TROMETHAMINE 30 MG/ML VIAL IVP ONE (18:45)
[2017-01-02 18:58] LABS: BASOPHILS # (AUTO) 0.04 K/uL (0.00-0.20); BASOPHILS % (AUTO) 0.3 % (0.0-2.0); EOSINOPHILS # (AUTO) 0.18 K/uL (0.00-0.70); EOSINOPHILS % (AUTO) 1.37 % (1.0-6.0); HEMATOCRIT 37.8 % (41-53); HEMOGLOBIN 12.8 g/dL (13.5-17.5); LYMPHOCYTES # (AUTO) 2.4 K/uL (1.0-4.8); LYMPHOCYTES % (AUTO) 18.7 % (22.0-44.0); MEAN CORPUSCULAR HEMOGLOBIN 39.5 pg (26.0-34.0); MEAN CORPUSCULAR HGB CONC 33.9 G/dL (31.0-37.0); MEAN CORPUSCULAR VOLUME 117 fL (80-100); MONOCYTES # (AUTO) 0.4 K/uL (0.1-1.0); MONOCYTES % (AUTO) 3.2 % (2.0-9.0); NEUTROPHILS # (AUTO) 9.9 K/uL (1.8-7.7); NEUTROPHILS % (AUTO) 76.4 % (40.0-70.0); PLATELET COUNT (AUTO) 132 K/uL (150-450); RED BLOOD CELL COUNT(AUTO) 3.24 MIL/uL (4.50-5.90); RED CELL DISTRIBUTION WIDTH 17.9 % (11.5-14.5)
[2017-01-02] MEDS ORDERED: SODIUM CHLORIDE 0.9% 100 ML ONE (19:00)
[2017-01-02] MEDS ORDERED: IOVERSOL 350 MG/ML 150 ML VIAL ONE (19:01)
[2017-01-02 19:23] LABS: ALANINE AMINOTRANSFERASE 27 U/L (12-78); ALBUMIN 2.4 g/dL (3.4-5.0); ANION GAP 11 mmol/L (8-16); ASPARTATE AMINOTRANSFERASE 75 U/L (15-37); B-TYPE NATRIURETIC PEPTIDE 37 pg/mL (0-100); BILIRUBIN,TOTAL 1.1 mg/dL (0.1-1.0); CALCIUM, TOTAL 7.3 mg/dL (8.8-10.5); CARBON DIOXIDE 27 mmol/L (22-29); CHLORIDE 98 mmol/L (98-107); CREATINE KINASE, TOTAL 62 U/L (39-308); CREATININE 0.88 mg/dL (0.60-1.30); GLOMERULAR FILTR. RATE CALC > 60 mL/min (>60); SODIUM SERUM 136 mmol/L (136-145); UREA NITROGEN, BLOOD 7 mg/dL (7-18)
[2017-01-02 19:26] LABS: RBC MORPHOLOGY COMMENT ABNORMAL RBC MORPH
[2017-01-02 19:28] LABS: POTASSIUM 2.8 mmol/L (3.5-5.1)
[2017-01-02] MEDS ORDERED: POTASSIUM CHLORIDE 20 MEQ ER TABLET PO ONE (19:45)
[2017-01-02] MEDS ORDERED: MORPHINE SULFATE 4 MG/ML SYRINGE IVP ONE (20:30)
[2017-01-02] MEDS ORDERED: ONDANSETRON HCL 4 MG/2 ML VIAL IVP PRN (21:00)
[2017-01-02] MEDS ORDERED: ACETAMINOPHEN 325 MG TABLET PO PRN ×2 (21:00→21:30)
[2017-01-02] MEDS ORDERED: BISACODYL 10 MG RECTAL RECTAL SUPPOSITORY PR PRN (21:30)
[2017-01-02] MEDS ORDERED: MAGNESIUM HYDROXIDE SUSPENSION 30 ML UDCUP PO PRN (21:30)
[2017-01-02] MEDS ORDERED: DEXTROSE 50%-WATER 25 GM/50 ML SYRINGE IVP PRN (21:30)
[2017-01-02] MEDS ORDERED: 0.9% SODIUM CHLORIDE 10 ML SYRINGE IVP PRN (21:30)
[2017-01-02] MEDS ORDERED: INSULIN ASPART 100 UNITS/ML SQ PRN (21:30)
[2017-01-02 21:48] VITALS: BP 118/72
[2017-01-02] MEDS: MORPHINE SULFATE 2 MG/ML SYRINGE IVP PRN (22:03)
[2017-01-02 23:41] VITALS: BP 102/63
[2017-01-02] MEDS: ONDANSETRON HCL 4 MG/2 ML VIAL IVP PRN (23:42)
[2017-01-03] MEDS: OXYGEN THERAPY IH SCH ×3 (00:30→19:35)
[2017-01-03] MEDS: IPRATROPIUM BROMIDE 0.5 MG/2.5 ML NEB SOLUTION NEB PRN ×2 (00:30→16:46)
[2017-01-03] MEDS: LEVALBUTEROL HCL 1.25 MG/0.5 ML NEB SOLUTION NEB PRN ×2 (00:31→16:46)
[2017-01-03] MEDS: MORPHINE SULFATE 2 MG/ML SYRINGE IVP PRN ×4 (02:09→22:47)
[2017-01-03 05:09] VITALS: BP 111/65
[2017-01-03] MEDS: ONDANSETRON HCL 4 MG/2 ML VIAL IVP PRN (06:13)
[2017-01-03 06:23] LABS: BASOPHILS % (AUTO) 0.6 % (0.0-2.0); HEMATOCRIT 32.9 % (41-53); HEMOGLOBIN 11.4 g/dL (13.5-17.5); LYMPHOCYTES # (AUTO) 2.5 K/uL (1.0-4.8); LYMPHOCYTES % (AUTO) 20.8 % (22.0-44.0); MEAN CORPUSCULAR HEMOGLOBIN 40.1 pg (26.0-34.0); MEAN CORPUSCULAR HGB CONC 34.7 G/dL (31.0-37.0); MEAN CORPUSCULAR VOLUME 116 fL (80-100); MONOCYTES # (AUTO) 0.5 K/uL (0.1-1.0); MONOCYTES % (AUTO) 4.1 % (2.0-9.0); NEUTROPHILS # (AUTO) 8.7 K/uL (1.8-7.7); NEUTROPHILS % (AUTO) 72.5 % (40.0-70.0); PLATELET COUNT (AUTO) 108 K/uL (150-450); RED BLOOD CELL COUNT(AUTO) 2.85 MIL/uL (4.50-5.90); RED CELL DISTRIBUTION WIDTH 17.9 % (11.5-14.5)
[2017-01-03 07:13] LABS: HEMOGLOBIN A1C 5.4 % (4.5-6.2)
[2017-01-03 07:15] LABS: ALBUMIN 2.1 g/dL (3.4-5.0); ASPARTATE AMINOTRANSFERASE 65 U/L (15-37); BILIRUBIN,TOTAL 1.1 mg/dL (0.1-1.0); CALCIUM, TOTAL 6.8 mg/dL (8.8-10.5); CHLORIDE 97 mmol/L (98-107); CHOL/HDL RATIO 4.4 (4.2-7.3); CREATININE 1.12 mg/dL (0.60-1.30); FERRITIN 348 ng/mL (26-388); GLOMERULAR FILTR. RATE CALC > 60 mL/min (>60); PHOSPHORUS 2.5 mg/dL (2.5-4.9); SODIUM SERUM 136 mmol/L (136-145); THYROID STIMULATING HORMONE 13.56 uIU/mL (0.36-3.74); TOTAL PROTEIN, SERUM 5.3 g/dL (6.4-8.2); UREA NITROGEN, BLOOD 9 mg/dL (7-18)
[2017-01-03 07:17] LABS: IRON, SERUM 143 mcg/dL (50-175); TOTAL IRON BINDING CAPACITY 153 mcg/dL (250-450)
[2017-01-03 07:23] LABS: ALANINE AMINOTRANSFERASE 25 U/L (12-78); ANION GAP 11 mmol/L (8-16); CARBON DIOXIDE 28 mmol/L (22-29)
[2017-01-03 07:27] LABS: POTASSIUM 2.8 mmol/L (3.5-5.1)
[2017-01-03 07:32] VITALS: BP 110/64
[2017-01-03 08:08] LABS: GLUCOSE,POINT OF CARE 103 MG/DL (70-110)
[2017-01-03 08:08] LABS: GLUCOSE,POINT OF CARE 103 MG/DL (70-110)
[2017-01-03] MEDS: FOLIC ACID 1 MG TABLET PO SCH (08:19)
[2017-01-03] MEDS: GABAPENTIN 100 MG CAPSULE PO SCH ×2 (08:19→20:15)
[2017-01-03] MEDS: OMEPRAZOLE 20 MG CAPSULE PO SCH (08:19)
[2017-01-03] MEDS: MULTIVITAMINS WITH MINERALS, THERAPEUTIC TABLET PO SCH (08:19)
[2017-01-03] MEDS: ASPIRIN 81 MG CHEWABLE TABLET PO SCH (08:19)
[2017-01-03] MEDS: DOCUSATE SODIUM 100 MG CAPSULE PO SCH ×2 (08:19→21:00)
[2017-01-03] MEDS: THIAMINE HCL 100 MG TABLET PO SCH (08:19)
[2017-01-03] MEDS: OxyCODONE HCL/ACETAMINOPHEN 5-325 MG TABLET PO PRN ×4 (08:20→20:19)
[2017-01-03] MEDS ORDERED: MAGNESIUM SULFATE 4 GM/WATER 100 ML IV ONE (08:45)
[2017-01-03] MEDS ORDERED: POTASSIUM CHLORIDE 20 MEQ ER TABLET PO ONE (08:45)
[2017-01-03] MEDS ORDERED: IOVERSOL 350 MG/ML 150 ML VIAL ONE (09:15)
[2017-01-03] MEDS ORDERED: SODIUM CHLORIDE 0.9% 100 ML ONE (09:16)
[2017-01-03] MEDS ORDERED: BARIUM SULFATE 0.1% SUSPENSION 450 ML BOTTLE ONE (09:16)
[2017-01-03 09:21] LABS: RBC MORPHOLOGY COMMENT ABNORMAL RBC MORPH
[2017-01-03] MEDS: POTASSIUM CHL 10 MEQ/WATER 50 ML IV SCH ×4 (09:46→15:57)
[2017-01-03 12:10] VITALS: BP 101/59
[2017-01-03 12:50] LABS: ABG A-A DIFF O2 83.6 mmHg (10-20.0); ABG HCO3 29.3 mmol/L (22.0-26.0); ABG OXYHEMOGLOBIN 95.9 % (94.0-100.0); ABG PCO2 43 mmHg (35-45); ABG PH 7.457 (7.35-7.450); ALLEN TEST, BLOOD GAS Positive; TEMPERATURE, FAHRENHEIT, BG 98.6 FAHREN (96.0-98.6)
[2017-01-03 13:32] LABS: APPEARANCE,URINE CLEAR (CLEAR); GLUCOSE, URINE (UA) NEGATIVE (NEGATIVE); KETONES,URINE TRACE mg/dL (NEGATIVE); LEUKOCYTE ESTERASE ,URINE SMALL (NEGATIVE); OCCULT BLOOD,URINE NEGATIVE (NEGATIVE); PH,URINE 6.5 (5.0-8.0); PROTEIN,URINE POS 1+ (NEGATIVE)
[2017-01-03 13:33] LABS: ADD UA MICROSCOPIC YES
[2017-01-03 13:42] LABS: SQUAMOUS EPITHELIAL CELL,UR Few /LPF (None Seen)
[2017-01-03] MEDS ORDERED: OxyCODONE HCL/ACETAMINOPHEN 5-325 MG TABLET PO PRN (14:00)
[2017-01-03 14:18] LABS: INR 1.1 (0.9-1.1); PROTHROMBIN TIME 11.6 SEC (9.4-11.6)
[2017-01-03] MEDS: CefTRIAXone 1 GM/DEXTROSE 50 ML IV SCH (14:49)
[2017-01-03 15:47] VITALS: BP 115/77
[2017-01-03 19:27] VITALS: BP 111/78
[2017-01-03] MEDS: METOPROLOL SUCCINATE 25 MG ER TABLET PO SCH (21:00)
[2017-01-03 22:41] VITALS: BP 110/70
[2017-01-04] VITALS (10 sets, daily range): BP systolic 91–136; BP diastolic 54–77
[2017-01-04] MEDS: IPRATROPIUM BROMIDE 0.5 MG/2.5 ML NEB SOLUTION NEB PRN ×2 (01:50→17:14)
[2017-01-04] MEDS: LEVALBUTEROL HCL 1.25 MG/0.5 ML NEB SOLUTION NEB PRN ×2 (01:50→17:15)
[2017-01-04 05:42] LABS: MAGNESIUM 1.4 mg/dL (1.80-2.40); POTASSIUM 3.5 mmol/L (3.5-5.1)
[2017-01-04] MEDS: OxyCODONE HCL/ACETAMINOPHEN 5-325 MG TABLET PO PRN ×3 (05:46→20:10)
[2017-01-04] MEDS: OXYGEN THERAPY IH SCH ×2 (07:59→20:11)
[2017-01-04] MEDS: GABAPENTIN 100 MG CAPSULE PO SCH ×2 (08:11→20:58)
[2017-01-04] MEDS: OMEPRAZOLE 20 MG CAPSULE PO SCH (08:11)
[2017-01-04] MEDS: DOCUSATE SODIUM 100 MG CAPSULE PO SCH ×2 (08:11→21:00)
[2017-01-04] MEDS: ASPIRIN 81 MG CHEWABLE TABLET PO SCH (08:11)
[2017-01-04] MEDS: FOLIC ACID 1 MG TABLET PO SCH ×2 (08:11→12:50)
[2017-01-04] MEDS: THIAMINE HCL 100 MG TABLET PO SCH (08:11)
[2017-01-04] MEDS: MULTIVITAMINS WITH MINERALS, THERAPEUTIC TABLET PO SCH (08:17)
[2017-01-04] MEDS ORDERED: POTASSIUM CHL 10 MEQ/WATER 50 ML IV ONE (09:45)
[2017-01-04] MEDS ORDERED: MAGNESIUM SULFATE 4 GM/WATER 100 ML IV ONE (09:45)
[2017-01-04] MEDS: CefTRIAXone 1 GM/DEXTROSE 50 ML IV SCH (17:13)
[2017-01-04] MEDS: METOPROLOL SUCCINATE 25 MG ER TABLET PO SCH (21:00)
[2017-01-05] VITALS (9 sets, daily range): BP systolic 84–110; BP diastolic 57–75
[2017-01-05] MEDS: OxyCODONE HCL/ACETAMINOPHEN 5-325 MG TABLET PO PRN ×2 (00:08→13:12)
[2017-01-05] MEDS: MORPHINE SULFATE 2 MG/ML SYRINGE IVP PRN (04:38)
[2017-01-05 06:06] LABS: BASOPHILS % (AUTO) 0.3 % (0.0-2.0); EOSINOPHILS % (AUTO) 6.4 % (1.0-6.0); HEMATOCRIT 33.4 % (41-53); HEMOGLOBIN 11.4 g/dL (13.5-17.5); LYMPHOCYTES # (AUTO) 2.3 K/uL (1.0-4.8); MEAN CORPUSCULAR HEMOGLOBIN 39.7 pg (26.0-34.0); MEAN CORPUSCULAR HGB CONC 34.1 G/dL (31.0-37.0); MEAN CORPUSCULAR VOLUME 117 fL (80-100); MONOCYTES # (AUTO) 0.8 K/uL (0.1-1.0); MONOCYTES % (AUTO) 7.3 % (2.0-9.0); NEUTROPHILS # (AUTO) 7.6 K/uL (1.8-7.7); PLATELET COUNT (AUTO) 102 K/uL (150-450); RED BLOOD CELL COUNT(AUTO) 2.86 MIL/uL (4.50-5.90); RED CELL DISTRIBUTION WIDTH 17.7 % (11.5-14.5); WHITE BLOOD COUNT (AUTO) 11.5 K/uL (4.5-11.0)
[2017-01-05 06:16] LABS: ALANINE AMINOTRANSFERASE 25 U/L (12-78); ALBUMIN 2.1 g/dL (3.4-5.0); ANION GAP 8 mmol/L (8-16); ASPARTATE AMINOTRANSFERASE 58 U/L (15-37); BILIRUBIN,TOTAL 0.7 mg/dL (0.1-1.0); CALCIUM, TOTAL 8.2 mg/dL (8.8-10.5); CARBON DIOXIDE 29 mmol/L (22-29); CHLORIDE 96 mmol/L (98-107); GLOMERULAR FILTR. RATE CALC > 60 mL/min (>60); POTASSIUM 4.2 mmol/L (3.5-5.1); SODIUM SERUM 133 mmol/L (136-145); TOTAL PROTEIN, SERUM 5.6 g/dL (6.4-8.2); UREA NITROGEN, BLOOD 11 mg/dL (7-18)
[2017-01-05 07:16] LABS: RBC MORPHOLOGY COMMENT ABNORMAL RBC MORPH
[2017-01-05] MEDS: OXYGEN THERAPY IH SCH ×2 (08:00→20:40)
[2017-01-05] MEDS: THIAMINE HCL 100 MG TABLET PO SCH (09:00)
[2017-01-05] MEDS: OMEPRAZOLE 20 MG CAPSULE PO SCH (13:12)
[2017-01-05] MEDS: DOCUSATE SODIUM 100 MG CAPSULE PO SCH ×2 (13:12→20:41)
[2017-01-05] MEDS: GABAPENTIN 100 MG CAPSULE PO SCH ×2 (13:12→20:40)
[2017-01-05] MEDS: FOLIC ACID 1 MG TABLET PO SCH (13:13)
[2017-01-05] MEDS: MULTIVITAMINS WITH MINERALS, THERAPEUTIC TABLET PO SCH (13:13)
[2017-01-05] MEDS: ASPIRIN 81 MG CHEWABLE TABLET PO SCH (13:13)
[2017-01-05] MEDS ORDERED: SODIUM CHLORIDE 0.9% 100 ML ONE (13:54)
[2017-01-05] MEDS: IPRATROPIUM BROMIDE 0.5 MG/2.5 ML NEB SOLUTION NEB PRN (15:54)
[2017-01-05] MEDS: LEVALBUTEROL HCL 1.25 MG/0.5 ML NEB SOLUTION NEB PRN (15:54)
[2017-01-05 17:23] LABS: GLUCOSE,POINT OF CARE 98 MG/DL (70-110)
[2017-01-05 17:23] LABS: GLUCOSE,POINT OF CARE 136 MG/DL (70-110)
[2017-01-05 17:23] LABS: GLUCOSE,POINT OF CARE 139 MG/DL (70-110)
[2017-01-05] MEDS ORDERED: DOBUTamine HCL/D5W 500 MG/250 ML IV BAG [STRESS LAB ONLY] IV ONE (17:38)
[2017-01-05] MEDS: METOPROLOL SUCCINATE 25 MG ER TABLET PO SCH (20:41)
[2017-01-05] MEDS ORDERED: MORPHINE SULFATE 2 MG/ML SYRINGE IVP ONE (21:00)
[2017-01-05 22:59] LABS: MYCOPLASMA AB IGG 196 U/mL (0-99)
[2017-01-06 00:15] VITALS: BP 111/70
[2017-01-06 05:58] VITALS: BP 91/58
[2017-01-06] MEDS: OXYGEN THERAPY IH SCH ×2 (07:02→19:01)
[2017-01-06 07:18] VITALS: BP 90/66
[2017-01-06 07:42] LABS: GLUCOSE,POINT OF CARE 103 MG/DL (70-110)
[2017-01-06 07:42] LABS: GLUCOSE,POINT OF CARE 132 MG/DL (70-110)
[2017-01-06] MEDS: ASPIRIN 81 MG CHEWABLE TABLET PO SCH (08:37)
[2017-01-06] MEDS: MULTIVITAMINS WITH MINERALS, THERAPEUTIC TABLET PO SCH (08:38)
[2017-01-06] MEDS: GABAPENTIN 100 MG CAPSULE PO SCH (08:38)
[2017-01-06] MEDS: DOCUSATE SODIUM 100 MG CAPSULE PO SCH ×2 (08:38→20:11)
[2017-01-06] MEDS: OMEPRAZOLE 20 MG CAPSULE PO SCH (08:38)
[2017-01-06] MEDS: THIAMINE HCL 100 MG TABLET PO SCH (08:38)
[2017-01-06] MEDS: FOLIC ACID 1 MG TABLET PO SCH (08:38)
[2017-01-06] MEDS: HYDROCODONE/ACETAMINOPHEN 5-325 MG TABLET PO PRN ×3 (08:39→20:11)
[2017-01-06 11:59] VITALS: BP 104/68
[2017-01-06] MEDS: NICOTINE 21 MG/24 HOUR PATCH TD SCH (12:27)
[2017-01-06] MEDS ORDERED: SODIUM CHLORIDE 0.9% 250 ML IV ONE (13:30)
[2017-01-06 15:36] VITALS: BP 103/68
[2017-01-06 15:52] LABS: GLUCOSE,POINT OF CARE 125 MG/DL (70-110)
[2017-01-06 15:52] LABS: GLUCOSE,POINT OF CARE 116 MG/DL (70-110)
[2017-01-06] MEDS: IPRATROPIUM BROMIDE 0.5 MG/2.5 ML NEB SOLUTION NEB PRN (19:01)
[2017-01-06] MEDS: LEVALBUTEROL HCL 1.25 MG/0.5 ML NEB SOLUTION NEB PRN (19:01)
[2017-01-06 20:02] VITALS: BP 130/70
[2017-01-06 20:12] LABS: GLUCOSE,POINT OF CARE 162 MG/DL (70-110)
[2017-01-06 20:12] LABS: GLUCOSE,POINT OF CARE 134 MG/DL (70-110)
[2017-01-06 20:12] LABS: GLUCOSE,POINT OF CARE 119 MG/DL (70-110)
[2017-01-07 00:51] VITALS: BP 116/58
[2017-01-07 01:09] LABS: OVA AND PARASITES EXAM Final report
[2017-01-07] MEDS: HYDROCODONE/ACETAMINOPHEN 5-325 MG TABLET PO PRN ×2 (02:03→08:14)
[2017-01-07 04:30] VITALS: BP 121/62
[2017-01-07 04:52] LABS: GLUCOSE COMMENT 1 Received Meds; GLUCOSE,POINT OF CARE 96 MG/DL (70-110)
[2017-01-07 07:22] VITALS: BP 122/71
[2017-01-07] MEDS: OMEPRAZOLE 20 MG CAPSULE PO SCH (08:12)
[2017-01-07] MEDS: OXYGEN THERAPY IH SCH ×2 (08:12→08:44)
[2017-01-07] MEDS: DOCUSATE SODIUM 100 MG CAPSULE PO SCH (08:12)
[2017-01-07] MEDS: THIAMINE HCL 100 MG TABLET PO SCH (08:14)
[2017-01-07] MEDS: MULTIVITAMINS WITH MINERALS, THERAPEUTIC TABLET PO SCH (08:14)
[2017-01-07] MEDS: FOLIC ACID 1 MG TABLET PO SCH (08:14)
[2017-01-07] MEDS: ASPIRIN 81 MG CHEWABLE TABLET PO SCH (08:14)
[2017-01-07] MEDS: NICOTINE 21 MG/24 HOUR PATCH TD SCH (08:15)
[2017-01-07] MEDS ORDERED: SULFAMETHOX/TRIMETH DS 800-160 MG/TABLET PO ONE (09:45)
[2017-01-07 13:48] LABS: GLUCOSE,POINT OF CARE 153 MG/DL (70-110)
[2017-01-07] MEDS ORDERED: METOPROLOL TARTRATE 25 MG TABLET PO SCH (21:00)
[2017-01-08 04:52] LABS: GLUCOSE,POINT OF CARE 128 MG/DL (70-110)
[2017-01-08 04:52] LABS: GLUCOSE,POINT OF CARE 124 MG/DL (70-110)
== END 2017-01-07 13:35 | disposition home or self-care (01) | DRG 463 ==
LOC: EMS 17:55 → 5S 21:00 → 5N 01-06 15:00
PROVIDERS: ADMIT Internal Medicine; ATTEND Internal Medicine
DX: N39.0 Urinary tract infection, site not specified (principal); J96.00 Acute respiratory failure, unspecified whether with hypoxia or hypercapnia; I26.99 Other pulmonary embolism without acute cor pulmonale; R65.10 Systemic inflammatory response syndrome (SIRS) of non-infectious origin without acute organ dysfunction; I11.0 Hypertensive heart disease with heart failure; E11.42 Type 2 diabetes mellitus with diabetic polyneuropathy; D69.6 Thrombocytopenia, unspecified; I50.22 Chronic systolic (congestive) heart failure; I11.9 Hypertensive heart disease without heart failure; R07.9 Chest pain, unspecified; Z68.43 Body mass index [BMI] 50.0-59.9, adult; E66.01 Morbid (severe) obesity due to excess calories; D53.9 Nutritional anemia, unspecified; F10.20 Alcohol dependence, uncomplicated; E87.6 Hypokalemia; E11.9 Type 2 diabetes mellitus without complications; E78.5 Hyperlipidemia, unspecified; F17.210 Nicotine dependence, cigarettes, uncomplicated; G47.33 Obstructive sleep apnea (adult) (pediatric); J44.9 Chronic obstructive pulmonary disease, unspecified; K74.60 Unspecified cirrhosis of liver; K75.81 Nonalcoholic steatohepatitis (NASH); Z76.5 Malingerer [conscious simulation]; Z82.5 Family history of asthma and other chronic lower respiratory diseases; Z22.322 Carrier or suspected carrier of Methicillin resistant Staphylococcus aureus
CPT/HCPCS: 70450; 71275; 74177; 76700; 82105; 82607; 82728; 82746; 82805; 82962; 83036; 83540; 83550; 83735; 84100; 84132; 84145; 84439; 84443; 87045; 87081; 87086; 87177; 87324; 87449; 87798; 89055; 93005; 93017; 93306; 93350; 94640; 94660; 96361; 96374; 96375; 97162; 97166; 97530; 99285; J0696; J1250; J1885; J2270; J2405; J3475; J3480; J7030; J7050